=== PATIENT | male | born 1980 | race Caucasian/White ===

== ENCOUNTER 2024-08-29 09:18 | Emergency (ER) | payer OTHER, SELFPAY ==
[2024-08-29 09:25] VITALS: BP 125/73
--- NOTE | 2024-08-29 09:36 | ED.GENMED ---
History of Present Illness
General
Chief Complaint: Fainting/Passed Out
Time Seen by Provider: 08/29/24 09:30
History of Present Illness
History of Present Illness:
44-year-old male presents to the emergency department for evaluation after a syncopal event. He is currently upstairs in this hospital in labor and delivery, his infant was born approximately 30 minutes prior to this event. He states he
felt lightheaded, he attributes this to not eating much and not sleeping much overnight. He did fall from a seated position to the ground and struck the back of his head. Currently he feels well, states he is fatigued but denies any headache,
vision changes, neck pain, or chest pain. Has had syncopal events in the past and this felt similar. Denies any alcohol or illicit substance use recently
Past History
Past History
ED Past Medical History: GERD
Social History
Tobacco: Non-smoker
Alcohol: Occasional
Drug: None
Personal:
Living: with family
Employment: Employed
Family History
Family History: Other (Noncontributory)
Review of Systems
Review of Systems
Allergies reviewed?: Yes
All Other Systems: ROS reviewed and negative except as documented in HPI and ROS
Phy Exam
Physical Exam
Physical Exam:
GEN: Well appearing, NAD, WDWN
HEENT: Oral mucosa moist, no scleral icterus, no nasal congestion
Cardiac: Regular rate and rhythm, no murmurs
Lung: No respiratory distress, no tachypnea
MSK: No gross deformity or injuries
Skin: Good color, no pallor or jaundice, no rashes
Neuro: AO x3; CN II-XII grossly intact. BUE strength 5/5 in all mcgarry, sensation intact and symmetric. BLE strength 5/5 in all mcgarry, sensation intact and symmetric
Psych: Calm, cooperative
Course
Orders/Labs/Results
Orders:
Orders
08/29/24 09:30
Electrocardiogram (*1) Urgent
Reason for Study: Syncope
EKG- Treatment ONCE
Vital Signs
Initial and Last Documented VS:
Initial Vital Signs
Temp Pulse Resp BP Pulse Ox
98.1 F 60 20 125/73 99
08/29/24 09:25 08/29/24 09:25 08/29/24 09:25 08/29/24 09:25 08/29/24 09:25
Last Documented Vital Signs
Temp Pulse Resp BP Pulse Ox
98.1 F 60 20 125/73 99
08/29/24 09:25 08/29/24 09:25 08/29/24 09:25 08/29/24 09:25 08/29/24 09:25
MDM/Problems Addressed
MDM/Problems Addressed:
EKG is reassuring. Neurologic exam benign. No signs of cranial trauma/skull fracture. Likely a vasovagal event, discharged in stable condition
*Critical Care Note
Total Time (30-74mins, 75-104mins- exclusive of procedures): Not Applicable
ED Attending Note
-
Portions of this chart may have been created with voice recognition software.� Occasional wrong word or��sound alike� substitutions may have occurred due to the inherent limitations of voice recognition software.
Discharge Plan
Departure
Patient Disposition: Home (Routine Discharge)
Date of Disposition: 08/29/24
Time of Disposition: 09:36
Patient with high blood pressure during this ER visit?: No
Discharge Problem:
Syncope, vasovagal
Instructions: Syncope (Fainting) (DC)
Interventions
Interventions:
*Risk Screen - Suicide Last Done: 08/29/24 09:25
*General Assessment Last Done: 08/29/24 09:25
*Neglect/Abuse Screening Last Done: 08/29/24 09:25
*Nursing Disposition Last Done: 08/29/24 10:07
Discharge Date and Time
Discharge Date/Time: 08/29/24 10:07
Print Language: SINHALA
== END 2024-08-29 10:07 | disposition home or self-care (01) ==
LOC: EMR 09:18
PROVIDERS: EMERGENCY PHYSICIAN Emergency Medicine; FAMILY PHYSICIAN Family Medicine
DX: R55 Syncope and collapse (principal); W07.XXXA Fall from chair, initial encounter
CPT/HCPCS: 99283; 93005

== ENCOUNTER 2024-12-12 06:18 | Day surgery (SDC) | payer OTHER, SELFPAY | END 2024-12-12 10:07 | disposition home or self-care (01) | LOC: GI 06:18 | PROVIDERS: ATTENDING PHYSICIAN Internal Medicine Gastroenterology | DX: R13.10 Dysphagia, unspecified (principal) | CPT/HCPCS: 43239; 88305 ==